=== PATIENT | female | born 2000 | race African-American/Black ===

== ENCOUNTER 2020-01-28 11:25 | Emergency (ER) | payer BC, OTHER ==
[2020-01-28 11:41] VITALS: BP 131/75; PULSE 92; TEMP 97.3
--- NOTE | 2020-01-28 11:53 | PDOC ---
Rapid Medical Evaluation Chief Complaint: Cold Symptoms Time Seen by Provider: 01/28/20 11:43 Medical Evaluation: Vital Signs Temp Pulse Resp BP Pulse Ox 97.3 F L 92 H 19 131/75 100 01/28/20 11:37 01/28/20 11:37 01/28/20 11:37 01/28/20 11:37 01/28/20 11:37 01/28/20 11:46 HPI: The patient is a 19 y/o female with no past medical history, who presents for prod cough and myalgia x 3 days. The patient has - exposure to coronavirus. - Recent travel. They are concerned they have coronavirus and present for testing. - difficulty breathing, shortness of breath, chest pain, lightheadedness, dizziness nausea, vomiting, and diarrhea. Other 12 point ROS reviewed and negative. EXAM: General: NAD, well-appearing, AAO x3. ENT: No rhinorrhea or nasal congestion. Neck: FROM, no midline tenderness Lungs: Clear to auscultation bilateral without wheezes rales or rhonchi. Normal excursion. Patient is able to speak in full sentences. Heart: Regular rate and rhythm, S1-S2 present, no murmurs rubs or gallops. Abdomen: Non-distended MSK/Extremities: no decreased ROM, no obvious deformities. No cyanosis Neuro: Normal gait, cranial nerves II through XII grossly intact. SKIN: No rashes, bruising. Color normal appearing A/P: Cough Patient has no past medical history, denies recent travel and known COVID exposure. Patient does not meet criteria for testing at this time. We will refer the patient to outpatient testing clinics in the [facility] for further monitoring of their symptoms. Strict return precautions given. Instructed that if they should have shortness of breath, chest pain or difficulty breathing to return to the emergency room for further management and treatment. Discharge home I discussed the physical exam findings, ancillary test results and final diagnoses with the patient. I answered all of the patient's questions. The patient was satisfied with the care received and felt comfortable with the discharge plan and treatment plan. The Patient agrees to follow up with the primary care physician/specialist within 24-72 hours. Return precautions were given. Discharge Disposition - Diagnosis Cough - Discharge Dispostion Disposition: HOME Condition at time of disposition: Good - Referrals - Patient Instructions Printed Discharge Instructions: [facility]-Coronavirus Instructions Additional Instructions: Although you have not been diagnosed with covid , I have enclosed information on this virus. Please call the [facility] [place] to make an appointment for a test [phone] Take Tylenol 650mg every 4 hours as needed for fever or pain You may take robitussin or other over the counter cough syrup. Follow the dosing instructions on the bottle. Warm tea, honey, and salt water gargles may help your symptoms. Return to the ER for shortness of breath, difficulty breathing, chest pain, or if you have any changes in your symptoms. - Post Discharge Activity
== END 2020-01-28 12:24 | disposition home or self-care (01) ==
LOC: JER 11:25
DX: Z03.818 Encounter for observation for suspected exposure to other biological agents ruled out (principal); R05 Cough
CPT/HCPCS: 99282-25